=== PATIENT | male | born 1970 | race Caucasian/White ===

== ENCOUNTER 2017-05-02 09:12 | Observation (INO) | payer OTHER ==
[2017-05-02] MEDS ORDERED: ASPIRIN 81 MG TABLET, CHEWABLE PO ONE (09:39)
--- NOTE | 2017-05-02 09:53 | ER Document Report ---
ED Medical Screen (RME) - General TRAVEL OUTSIDE OF THE [place] IN LAST 30 DAYS: No <TRACEY BROOKS - Last Filed: 05/02/17 12:24> <FREDERICK TOBIAS - Last Filed: 05/02/17 21:07> - General Chief Complaint: Chest Pain Stated Complaint: CHEST PAIN/SHORTNESS OF BREATH Time Seen by Provider: 05/02/17 09:32 Notes: Patient is a 46 year old male presenting to the emergency department for chest pain/tightness with nausea onset last night. Patient has also had a cough and headache over the last couple of days. Patient states he has been run down and tired lately. Patient states he feels like he had chest pain one other time recently but it went away unlike last night's episode where it lasted longer. Patient also complains of some neck pain this morning. Patient denies any vomiting or diarrhea. Patient states he feels like he has to "work harder to breath." Patient also complains of some dizziness with walking. Patient also states he had an episode recently where his body was shaking for about 30 minutes which was abnormal for him. Patient denies any history of stroke, [place], diabetes mellitus, and hypertension. Patient had a physical about 1.5 years ago and he was healthy with normal blood work. I have greeted and performed a rapid initial assessment of this patient. A comprehensive ED assessment and evaluation of the patient, analysis of test results and completion of the medical decision making process will be conducted by additional ED providers. (TRACEY BROOKS) - Related Data Allergies/Adverse Reactions: No Known Allergies Allergy (Verified 05/02/17 09:24) Past Medical History - Social History Cigarette use (# per day): No Chew tobacco use (# tins/day): No Frequency of alcohol use: None Drug Abuse: None Renal/ Medical History: Denies: Hx Peritoneal Dialysis Past Surgical History: Reports: Hx Appendectomy <TRACEY BROOKS - Last Filed: 05/02/17 12:24> Physical Exam <TRACEY BROOKS - Last Filed: 05/02/17 12:24> <FREDERICK TOBIAS - Last Filed: 05/02/17 21:07> - Vital signs Vitals: Temp Pulse Resp BP Pulse Ox 97.9 F 81 20 136/83 H 96 05/02/17 09:25 05/02/17 09:25 05/02/17 09:25 05/02/17 09:25 05/02/17 09:25 - Notes Notes: General: Alert, interacts well, no acute distress. Lungs: Clear to auscultation bilaterally, dry cough, no rhonchi no wheezing. Heart: Regular rhythm and rate. No murmurs, gallops or rubs. Abdomen: Overweight. (TRACEY BROOKS) Course - Laboratory Result Diagrams: 05/02/17 09:45 05/02/17 09:45 <TRACEY BROOKS - Last Filed: 05/02/17 12:24> - Laboratory Result Diagrams: 05/02/17 09:45 05/02/17 09:45 <FREDERICK TOBIAS - Last Filed: 05/02/17 21:07> - Vital Signs Vital signs: Temp Pulse Resp BP Pulse Ox 97.8 F 73 20 151/88 H 97 05/02/17 18:25 05/02/17 19:00 05/02/17 18:25 05/02/17 18:25 05/02/17 18:25 - Laboratory Laboratory results interpreted by me: 05/02/17 05/02/17 05/02/17 09:45 09:45 09:45 RBC 5.80 H D-Dimer 2.22 H Total Protein 8.3 H Doctor's Discharge <TRACEY BROOKS - Last Filed: 05/02/17 12:24> <FREDERICK TOBIAS - Last Filed: 05/02/17 21:07> - Discharge Clinical Impression: Pulmonary embolism Scribe Documentation - Scribe Written by Scribpilo:: Emory Carrasco 05/02/17 10:00 acting as scribe for :: Narcisa <TRACEY BROOKS - Last Filed: 05/02/17 12:24>
[2017-05-02 10:01] LABS: ABSOLUTE EOSINOPHILS # (AUTO) 0.3 10^3/uL (0.0-0.6); ABSOLUTE LYMPHOCYTES (AUTO) 1.6 10^3/uL (0.5-4.7); ABSOLUTE MONOCYTES (AUTO) 1.1 10^3/uL (0.1-1.4); ABSOLUTE NEUT (AUTO) 6.7 10^3/uL (1.7-8.2); BASOPHILS % (AUTO) 0.5 % (0-2); EOSINOPHILS % (AUTO) 3.4 % (0-6); HEMATOCRIT 48.7 % (37.9-51.0); HEMOGLOBIN 16.4 g/dL (13.5-17.0); HGB HCT DIFFERENCE 0.5; LYMPHOCYTES % (AUTO) 16.7 % (13-45); MEAN CORPUSCULAR HEMOGLOBIN 28.3 pg (27.0-33.4); MEAN CORPUSCULAR HGB CONC 33.7 g/dL (32.0-36.0); MEAN CORPUSCULAR VOLUME 84 fl (80-97); MONOCYTES % (AUTO) 11.6 % (3-13); RED CELL DISTRIBUTION WIDTH 13.5 % (11.5-14.0); SEGMENTED NEUTROPHILS % (AUTO) 67.8 % (42-78); WHITE BLOOD COUNT 9.9 10^3/uL (4.0-10.5)
--- NOTE | 2017-05-02 10:35 | RADIOLOGY REPORT (SQ) ---
EXAM DESCRIPTION: CHEST SINGLE VIEW COMPLETED DATE/TIME: 05/02/2017 10:28 am REASON FOR STUDY: chest pain, tightness, cough COMPARISON: None. EXAM PARAMETERS: NUMBER OF VIEWS: One view. TECHNIQUE: Single frontal radiographic view of the chest acquired. RADIATION DOSE: NA LIMITATIONS: None. FINDINGS: LUNGS AND PLEURA: No opacities, masses or pneumothorax. No pleural effusion. MEDIASTINUM AND HILAR STRUCTURES: No masses. Contour normal. HEART AND VASCULAR STRUCTURES: Heart normal in size. Normal vasculature. BONES: No acute findings. HARDWARE: None in the chest. OTHER: No other significant finding. IMPRESSION: NO ACUTE RADIOGRAPHIC FINDING IN THE CHEST. TECHNICAL DOCUMENTATION: JOB ID: [id number]
[2017-05-02 10:43] LABS: ALANINE AMINOTRANSFERASE 34 U/L (21-72); ALBUMIN 4.6 g/dL (3.5-5.0); ALKALINE PHOSPHATASE 79 U/L (38-126); ANION GAP 14 (5-19); ASPARTATE AMINO TRANSFERASE 30 U/L (17-59); BILIRUBIN,DIRECT 0.4 mg/dL (0.0-0.4); BLOOD UREA NITROGEN 14 mg/dL (7-20); CALCIUM 9.6 mg/dL (8.4-10.2); CARBON DIOXIDE 24 mmol/L (22-30); CHLORIDE 103 mmol/L (98-107); CREATINE KINASE 109 U/L (55-170); CREATININE RESULT 0.91 mg/dL (0.52-1.25); GLUCOSE 103 mg/dL (75-110); POTASSIUM 4.4 mmol/L (3.6-5.0); SODIUM 140.7 mmol/L (137-145); TOTAL PROTEIN 8.3 g/dL (6.3-8.2)
--- NOTE | 2017-05-02 10:48 | ER Document Report ---
ED Cardiac - General Chief Complaint: Chest Pain Stated Complaint: CHEST PAIN/SHORTNESS OF BREATH Time Seen by Provider: 05/02/17 09:32 Notes: Patient is here to be evaluated for a "tightness" in the front of his chest that began last night after he ate dinner. He says it feels "full". Also started having generalized headache and some nausea last night. He has had a cough for the past couple days and denies shortness of breath but he says his breathing feels "off" and "different" his nausea and headache continued today. He is also feeling some dizziness. The chest tightness has been constant although it has eased somewhat and is less today than it was last night. He has had no vomiting. Has had some loose stools last night and this morning. Has not had a fever, but did feel he has had some chills and sweats. Patient has no significant past medical history. Does not get headaches frequently. Has no history of any heart disease. Is not on any prescription medications. Only surgery is appendectomy. Does not smoke. TRAVEL OUTSIDE OF THE [place] IN LAST 30 DAYS: No - Related Data Allergies/Adverse Reactions: No Known Allergies Allergy (Verified 05/02/17 09:24) Home Medications: Current Home Medications No Home Medications 05/02/17 [History] Past Medical History - Social History Smoking Status: Never Smoker Cigarette use (# per day): No Chew tobacco use (# tins/day): No Frequency of alcohol use: None Drug Abuse: None Family History: Reviewed & Not Pertinent - Past Medical History Cardiac Medical History: Reports: None Pulmonary Medical History: Reports: None Endocrine Medical History: Denies: Hx Diabetes Mellitus Type 1, Hx Diabetes Mellitus Type 2 Psychiatric Medical History: Denies: Hx Anxiety Past Surgical History: Reports: Hx Appendectomy Review of Systems - Review of Systems Notes: REVIEW OF SYSTEMS: CONSTITUTIONAL : Denies fever. EENT: Denies eye, ear, nose or mouth or throat pain or other symptoms. CARDIOVASCULAR: See HPI. RESPIRATORY: See HPI. GASTROINTESTINAL: Denies abdominal pain or nausea, vomiting, or diarrhea. GENITOURINARY: Denies difficulty or painful urinating, urinary frequency, blood in urine. MUSCULOSKELETAL: Denies back or neck pain. Denies joint pain or swelling. SKIN: Denies rash or skin lesions. NEUROLOGICAL: Denies LOC or altered mental status. Denies headache. Denies sensory loss or motor deficits. Psychiatric: Denies stress/anxiety ALL OTHER SYSTEMS REVIEWED AND NEGATIVE. Physical Exam - Vital signs Vitals: Temp Pulse Resp BP Pulse Ox 97.9 F 81 20 136/83 H 96 05/02/17 09:25 05/02/17 09:25 05/02/17 09:25 05/02/17 09:25 05/02/17 09:25 Interpretation: Normal - Notes Notes: PHYSICAL EXAMINATION: GENERAL: Well-appearing, in no acute distress. Weight is 123 kg. No tachycardia and no hypoxia noted. HEAD: Atraumatic, normocephalic. NECK: Normal range of motion, supple. LUNGS: Breath sounds clear and equal bilaterally. HEART: Regular rate and rhythm without murmurs. ABDOMEN: Soft, nontender. No guarding or rebound. No masses. No bruits heard. BACK: No tenderness throughout entire back. EXTREMITIES: Normal range of motion without pain. Negative Homans bilaterally. NEUROLOGICAL: Normal speech, normal gait. Normal sensory, motor, and reflex exams. Awake, alert, and oriented x3. Cranial nerves normal. PSYCH: Normal mood, normal affect. SKIN: Warm, dry, no rashes. Course - Re-evaluation Re-evalutation: 05/02/17 12:01 All labs are normal except for d-dimer of 2.22. Plan to order a CTA of the chest. CTA shows a right pulmonary embolism. Hospitalist was called to see patient and they have decided to admit the patient to start him on anticoagulation treatment. - Vital Signs Vital signs: Temp Pulse Resp BP Pulse Ox 97.9 F 81 20 107/68 98 05/02/17 09:25 05/02/17 09:25 05/02/17 16:00 05/02/17 16:01 05/02/17 16:01 - Laboratory Result Diagrams: 05/02/17 09:45 05/02/17 09:45 Laboratory results interpreted by me: 05/02/17 05/02/17 05/02/17 09:45 09:45 09:45 RBC 5.80 H D-Dimer 2.22 H Total Protein 8.3 H - Diagnostic Test Radiology reviewed: Image reviewed, Reports reviewed - CTA of the chest shows a single right pulmonary artery thromboembolus. Radiology results interpreted by me: 05/02/17 10:55 Chest x-ray is normal. - EKG Interpretation by [facility] EKG shows normal: Sinus rhythm Rate: Normal Rhythm: NSR Discharge - Discharge Clinical Impression: Pulmonary embolism Qualifiers: Pulmonary embolism type: other Chronicity: acute Acute cor pulmonale presence: without acute cor pulmonale Qualified Code(s): I26.99 - Other pulmonary embolism without acute cor pulmonale Admitting Provider: Hospitalist Unit Admitted: Telemetry
[2017-05-02 10:53] LABS: CREATINE KINASE MB 0.54 ng/mL (<4.55)
[2017-05-02 10:58] LABS: TROPONIN I < 0.012 ng/mL
--- NOTE | 2017-05-02 12:40 | RADIOLOGY REPORT (SQ) ---
EXAM DESCRIPTION: CTA CHEST COMPLETED DATE/TIME: 05/02/2017 12:22 pm REASON FOR STUDY: Chest pain, difficulty breathing, positive d-dimer COMPARISON: Chest x-ray dated 05/02/2017 TECHNIQUE: CT scan of the chest performed using helical scanning technique with dynamic intravenous contrast injection. Images reviewed with lung, soft tissue and bone windows. Reconstructed coronal and sagittal MPR images reviewed. Additional 3 dimensional post-processing performed to develop Maximal Intensity Projection images (AR P). All images stored on PACS. All CT scanners at this facility use dose modulation, iterative reconstruction, and/or weight based d osing when appropriate to reduce radiation dose to as low as reasonably achievable (ALARA). [facility]: Dose Right [facility]: CareDose [facility]: Dose Right [facility]: Teradose 4D [facility]: Autotask CONTRAST TYPE AND DOSE: contrast/concentration: Isovue 370.00 mg/ml; Total Contrast Delivered: 84.0 ml; Total Saline Delivered: 99.2 ml RENAL FUNCTION: None required. The patient is less than 50 years old. RADIATION DOSE: Up-to-date CT equipment and radiation dose reduction techniques were employed. CTDIv ol: 16.5 - 37.6 mGy. DLP: 1406 mGy-cm. . LIMITATIONS: None. FINDINGS: LUNGS AND PLEURA: No masses, infiltrates, pneumothorax. No pleural effusions, calcificati ons. AORTA AND GREAT VESSELS: No aneurysm or dissection. HEART: No pericardial effusion. PULMONARY ARTERIES: Intraluminal thrombus is identified in 1 of the descending pulmonary arteries on the right. No other evidence for pulmonary embolic disease is seen. HILAR AND MEDIASTINAL STRUCTURES: No identified masses or abnormal nodes. HARDWARE: None in the chest. UPPER ABDOMEN: No significant findings. Limited exam. THYROID AND OTHER SOFT TISSUES: No masses. No adenopathy. BONES: No acute or significant finding. 3D MIPS: Confirm above findings. OTHER: No other significant finding. IMPRESSION: Findings consistent with pulmonary embolic disease involving 1 of the descending pulmona ry arteries on the right. No other evidence for pulmonary embolic disease is seen. No acute consoli dations or pleural effusions are identified. Other findings as noted above TECHNICAL DOCUMENTATION: JOB ID: [id number] Quality ID # [id number]: Final reports with documentation of one or more dose reduction techniques (e.g., Au tomated exposure control, adjustment of the mA and/or kV according to patient size, use of iterative reconstruction technique) 2010 [employer]- All Rights Reserved
[2017-05-02] MEDS ORDERED: IPRATROPIUM/ALBUTEROL 0.5-2.5 MG/3 ML AMPUL NEB PRN (14:07)
[2017-05-02] MEDS ORDERED: ENOXAPARIN SODIUM INJ 120 MG/0.8 ML DISP.SYRIN SUBCUT ONE (14:23)
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
[2017-05-02] MEDS ORDERED: ACETAMINOPHEN 325 MG TABLET ONE (14:54)
[2017-05-02] MEDS: ACETAMINOPHEN 325 MG TABLET PO PRN ×2 (14:55→20:30)
--- NOTE | 2017-05-02 16:58 | XCELERA REPORT ---
[address] [address] Lower Extremity Venous Evaluation Name: JIMMY MORALES Age: 46 yrs Gender: Male : 1970 Patient Status: Inpatient Patient Location: \S\[facility]\S\A Study Date: 05/02/2017 03:54 PM Procedure: Color flow and duplex imaging bilaterally of the veins of the lower extremities as well as the Common Femoral veins. Reason For Study: pe Ordering Physician: NIDHI AVELAR Performed By: Donnie Garcia Right Sided Venous Evaluation Normal vessel filling wall to wall, compression and augmentation as well as Colour flow down to the infrageniculate veins. Left Sided Venous Evaluation Normal vessel filling wall to wall, compression and augmentation as well as Colour flow down to the infrageniculate veins. Interpretation Summary No duplex evidence of DVT or obstruction in the bilateral lower extremities. : NIDHI AVELAR > Warren Zavala
[2017-05-03] MEDS ORDERED: APIXABAN 5 MG TABLET PO SCH (06:00)
[2017-05-03 07:22] LABS: HEMATOCRIT 44.2 % (37.9-51.0); HEMOGLOBIN 15.2 g/dL (13.5-17.0); HGB HCT DIFFERENCE 1.4; MEAN CORPUSCULAR HEMOGLOBIN 29.1 pg (27.0-33.4); MEAN CORPUSCULAR HGB CONC 34.3 g/dL (32.0-36.0); MEAN CORPUSCULAR VOLUME 85 fl (80-97); RED BLOOD COUNT 5.21 10^6/uL (4.35-5.55); RED CELL DISTRIBUTION WIDTH 13.4 % (11.5-14.0); WHITE BLOOD COUNT 7.7 10^3/uL (4.0-10.5)
[2017-05-03 07:44] LABS: ANION GAP 10 (5-19); BLOOD UREA NITROGEN 12 mg/dL (7-20); CALCIUM 9.1 mg/dL (8.4-10.2); CARBON DIOXIDE 25 mmol/L (22-30); CHLORIDE 104 mmol/L (98-107); GLUCOSE 85 mg/dL (75-110); MAGNESIUM 1.8 mg/dL (1.6-2.3); POTASSIUM 4.3 mmol/L (3.6-5.0); SODIUM 138.9 mmol/L (137-145)
[2017-05-03 13:36] VITALS: BP 151/88
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
--- NOTE | 2017-05-04 13:52 | EKG REPORT ---
SEVERITY:- OTHERWISE NORMAL ECG - SINUS RHYTHM BORDERLINE LEFT AXIS DEVIATION : Confirmed by: Ciara Friedman MD 04-May-2017 13:51:54
== END 2017-05-03 14:18 | disposition home or self-care (01) ==
LOC: ER 09:12 → EH 14:07 → 4S 18:08
PROVIDERS: ADMIT Hospitalist; ATTEND Hospitalist
DX: I26.99 Other pulmonary embolism without acute cor pulmonale (principal); E66.01 Morbid (severe) obesity due to excess calories; Z68.41 Body mass index [BMI] 40.0-44.9, adult; R11.0 Nausea; R51 Headache; R68.83 Chills (without fever); R25.1 Tremor, unspecified; Z82.49 Family history of ischemic heart disease and other diseases of the circulatory system; Z90.49 Acquired absence of other specified parts of digestive tract; Z87.828 Personal history of other (healed) physical injury and trauma
CPT/HCPCS: 93005; 99285; 96372; 36415 ×2; 82553; 82550; 83735; 84443; 85025; 85027; 85730; 82272; 80048; 80053; 84484; 85379; 93970 ×2; 71010; 71275; 93010; G0378 ×3; J1650; J3490 ×2

== ENCOUNTER 2017-05-03 22:55 | Emergency (ER) | payer SELFPAY ==
--- NOTE | 2017-05-04 13:52 | EKG REPORT ---
SEVERITY:- NORMAL ECG - SINUS RHYTHM : Confirmed by: Ciara Friedman MD 04-May-2017 13:51:45
== END 2017-05-04 00:05 | disposition left against medical advice (07) ==
LOC: ER 22:55
DX: Z53.21 Procedure and treatment not carried out due to patient leaving prior to being seen by health care provider (principal)
CPT/HCPCS: 93005; 93010

== ENCOUNTER 2017-05-04 06:29 | Emergency (ER) | payer SELFPAY ==
--- NOTE | 2017-05-04 08:14 | ER Document Report ---
HPI - HPI Pain Level: 4 - DERM Skin Color: Normal Past Medical History - Social History Family History: CAD, Hypertension Endocrine Medical History: Denies: Hx Diabetes Mellitus Type 1, Hx Diabetes Mellitus Type 2 Renal/ Medical History: Denies: Hx Peritoneal Dialysis Psychiatric Medical History: Denies: Hx Anxiety Past Surgical History: Reports: Hx Appendectomy Vertical Provider Document - INFECTION CONTROL TRAVEL OUTSIDE OF THE [place] IN LAST 30 DAYS: No - RESPIRATORY O2 Sat by Pulse Oximetry: 97 Course - Vital Signs Vital signs: Temp Pulse Resp BP Pulse Ox 98.6 F 85 18 142/77 H 97 05/04/17 06:51 05/04/17 06:51 05/04/17 06:51 05/04/17 06:51 05/04/17 06:51
--- NOTE | 2017-05-04 08:51 | ER Document Report ---
ED Respiratory Problem - General Chief Complaint: Rib Pain Stated Complaint: RIGHT SIDE PAIN Time Seen by Provider: 05/04/17 08:14 Mode of Arrival: Ambulatory Information source: Patient Notes: 46 yo male c/o right thoracic stabbing back pain since 7 pm worse with deep breath, movement, cough. Taking Eliquis 10mg bid since dx with right PE on . That pain was anterior only. No shortness of breath. TRAVEL OUTSIDE OF THE [place] IN LAST 30 DAYS: No - Related Data Allergies/Adverse Reactions: No Known Allergies Allergy (Verified 05/04/17 08:33) Past Medical History - General Information source: Patient - Social History Smoking Status: Never Smoker Chew tobacco use (# tins/day): No Frequency of alcohol use: None Drug Abuse: None Lives with: Spouse/Significant other Family History: CAD, Hypertension - Medical History Medical History: Negative Renal/ Medical History: Denies: Hx Peritoneal Dialysis Past Surgical History: Reports: Hx Appendectomy - Immunizations Hx Diphtheria, Pertussis, Tetanus Vaccination: Yes Review of Systems - Review of Systems Constitutional: No symptoms reported EENT: No symptoms reported Cardiovascular: No symptoms reported Respiratory: See HPI Gastrointestinal: No symptoms reported Genitourinary: No symptoms reported Male Genitourinary: No symptoms reported Musculoskeletal: No symptoms reported Skin: No symptoms reported Hematologic/Lymphatic: No symptoms reported Neurological/Psychological: No symptoms reported Physical Exam - Vital signs Vitals: Temp Pulse Resp BP Pulse Ox 98.6 F 85 18 142/77 H 97 05/04/17 06:51 05/04/17 06:51 05/04/17 06:51 05/04/17 06:51 05/04/17 06:51 Interpretation: Normal - General General appearance: Appears well, Alert In distress: None - HEENT Head: Normocephalic, Atraumatic Eyes: Normal Pupils: PERRL Neck: Supple. No: Lymphadenopathy - Respiratory Respiratory status: No respiratory distress Chest status: Nontender, Pain with cough, Pain with deep breathing Breath sounds: Normal Chest palpation: Normal - Cardiovascular Rhythm: Regular Heart sounds: Normal auscultation Murmur: No - Abdominal Inspection: Normal Distension: No distension Bowel sounds: Normal Tenderness: Nontender Organomegaly: No organomegaly - Back Back: Normal, Nontender. No: Tender - Extremities General upper extremity: Normal inspection, Nontender, Normal color, Normal ROM , Normal temperature General lower extremity: Normal inspection, Nontender, Normal color, Normal ROM , Normal temperature, Normal weight bearing. No: Delano's sign - Neurological Neuro grossly intact: Yes Cognition: Normal Orientation: AAOx4 Katty Coma Scale Eye Opening: Spontaneous [place] Coma Scale Verbal: Oriented Katty Coma Scale Motor: Obeys Commands [place] Coma Scale Total: 15 Speech: Normal Motor strength normal: LUE, RUE, LLE, RLE Sensory: Normal - Psychological Associated symptoms: Normal affect, Normal mood - Skin Skin Temperature: Warm Skin Moisture: Dry Skin Color: Normal Skin irregularity: negative: Rash Course - Re-evaluation Re-evalutation: 05/04/17 09:[address] li, pt can hurt for weeks with this, chest xray OK per radiologist 05/04/17 09:45 - Vital Signs Vital signs: Temp Pulse Resp BP Pulse Ox 99.0 F 73 16 132/80 H 98 05/04/17 09:58 05/04/17 09:58 05/04/17 09:58 05/04/17 09:58 05/04/17 09:58 Discharge - Discharge Clinical Impression: right thoracic back pain, pleuritic posterior chest pain, Hx right PE Condition: Good Disposition: HOME, SELF-CARE Instructions: Warm Packs ([facility]), Oral Narcotic Medication ([facility]), Pleurisy ([facility]) Additional Instructions: warm compress may help continue to cough and deep breathe return to er if any shortness of breath continue the eliquis pain medication may cause constipation, so take stool softner Please complete the patient satisfaction survey if you get one, and return it.. If you do not receive a survey, then you can go to the [facility] website, [email or web address] and place your comments about your very good care. Thank you very much. It was a pleasure being your medical provider today. Prescriptions: Hydrocodone Bit/Acetaminophen [Hydrocodon-Acetaminophen 5-325] 1 - 2 each PO Q4HP PRN #30 tablet PRN Reason: Referrals: SHANNEN ESTEVEZ PA-C [Primary Care Provider] - Follow up in 3-5 days
[2017-05-04] MEDS ORDERED: HYDROCODONE/ACETAMINOPHEN 5-325 MG TABLET PO ONE (09:01)
--- NOTE | 2017-05-04 09:42 | RADIOLOGY REPORT (SQ) ---
EXAM DESCRIPTION: CHEST PA/LAT COMPLETED DATE/TIME: 05/04/2017 9:32 am REASON FOR STUDY: right posterior thoracic chest pain COMPARISON: 05/02/2017 EXAM PARAMETERS: NUMBER OF VIEWS: two views TECHNIQUE: Digital Frontal and Lateral radiographic views of the chest acquired. RADIATION DOSE: NA LIMITATIONS: none FINDINGS: LUNGS AND PLEURA: No new opacities, masses or pneumothorax. No pleural effusion. MEDIASTINUM AND HILAR STRUCTURES: No masses or contour abnormalities. HEART AND VASCULAR STRUCTURES: Heart stable in size. No evidence for failure. BONES: No acute findings. HARDWARE: None in the chest. OTHER: No other significant finding. IMPRESSION: NO ACUTE CARDIOPULMONARY PROCESS OR SIGNIFICANT CHANGE FROM PRIOR STUDY. TECHNICAL DOCUMENTATION: JOB ID: [id number] [employer]- All Rights Reserved
[2017-05-04 10:02] VITALS: BP 132/80
== END 2017-05-04 09:55 | disposition home or self-care (01) ==
LOC: ER 06:29
DX: M54.6 Pain in thoracic spine (principal); R07.81 Pleurodynia; R07.1 Chest pain on breathing; Z86.711 Personal history of pulmonary embolism; Z79.02 Long term (current) use of antithrombotics/antiplatelets; Z82.49 Family history of ischemic heart disease and other diseases of the circulatory system
CPT/HCPCS: 71020; 99283

== ENCOUNTER 2017-05-05 09:14 | Emergency (ER) | payer SELFPAY ==
--- NOTE | 2017-05-05 10:10 | ER Document Report ---
HPI - HPI Patient complains to provider of: fever Onset: Yesterday Onset/Duration: Intermittent Pain Level: 3 Context: 46-year-old male with a diagnosis of right pulmonary embolism returns today because he developed a fever over 101 yesterday. He was seen in the emergency department yesterday due to thoracic back pain. I treated him with hydrocodone in the chest x-ray was negative for pneumonia. There is no increased shortness of breath and the pain is decreased since he was taking hydrocodone. Her throat runny nose. No nausea vomiting or diarrhea. No abdominal pain. No dysuria. Associated Symptoms: None Exacerbated by: Denies Relieved by: Other - tylenol Similar symptoms previously: No Recently seen / treated by doctor: No - ROS ROS below otherwise negative: Yes Systems Reviewed and Negative: Yes All other systems reviewed and negative - CARDIOVASCULAR Cardiovascular: DENIES: Chest pain - DERM Skin Color: Normal Past Medical History - General Information source: Patient - Social History Smoking Status: Never Smoker Frequency of alcohol use: None Drug Abuse: None Lives with: Family Family History: CAD, Hypertension - Medical History Medical History: Negative Pulmonary Medical History: Reports: Other - PE recent dx, taking eliquis Renal/ Medical History: Denies: Hx Peritoneal Dialysis Past Surgical History: Reports: Hx Appendectomy - Immunizations Hx Diphtheria, Pertussis, Tetanus Vaccination: Yes Vertical Provider Document - CONSTITUTIONAL Agree With Documented VS: Yes Exam Limitations: No Limitations - INFECTION CONTROL TRAVEL OUTSIDE OF THE [place] IN LAST 30 DAYS: No - HEENT HEENT: Normal ENT Exam. negative: Conjuctival Injection - NECK Neck: Supple - RESPIRATORY Respiratory: Rales - fine crackles right bse. negative: Rhonchi, Wheezing O2 Sat by Pulse Oximetry: 97 - CARDIOVASCULAR Cardiovascular: Regular Rate, Regular Rhythm - GI/ABDOMEN Gastrointestinal: Abdomen Soft, Abdomen Non-Tender - MUSCULOSKELETAL/EXTREMETIES Musculoskeletal/Extremeties: MAEW, FROM - NEURO Level of Consciousness: Awake, Alert, Appropriate Motor/Sensory: No Motor Deficit, No Sensory Deficit - DERM Integumentary: Warm, Dry, No Rash Course - Re-evaluation Re-evalutation: 05/05/17 11:30 Chest x-ray shows atelectasis and low lung volumes. I instructed the patient on how to use the incentive spirometer and will try an albuterol nebulizer treatment. CBC is normal. 05/05/17 12:38 able to breathe deeper after incentive spirometer and albuterol nebulizer. Areated lower right lung than prior to tx and incentive spirometer 05/05/17 12:55 - Vital Signs Vital signs: Temp Pulse Resp BP Pulse Ox 99.0 F 102 H 20 165/82 H 97 05/05/17 09:19 05/05/17 09:19 05/05/17 09:19 05/05/17 09:19 05/05/17 09:19 - Laboratory Result Diagrams: 05/05/17 11:06 05/05/17 11:06 Discharge - Discharge Clinical Impression: Hx pulmonary embolism, mild atelectasis Fever Qualifiers: Fever type: unspecified Qualified Code(s): R50.9 - Fever, unspecified Condition: Good Disposition: HOME, SELF-CARE Instructions: Fever ([facility]), Acetaminophen, Atelectasis ([facility]), Inhaled Bronchodilators ([facility]) Additional Instructions: use the incentive spirometry every hour cougn and deep breath use the albuterol meter dose inhaler every 3 hours, 2 puffs to er if worsening symptoms Please complete the patient satisfaction survey if you get one, and return it.. If you do not receive a survey, then you can go to the [facility] website, [email or web address] and place your comments about your very good care. Thank you very much. It was a pleasure being your medical provider today. Prescriptions: Albuterol Sulfate [Proair HFA Inhalation Aerosol 8.5 gm MDI] 2 puff IH Q3HP PRN #1 [email or web address] PRN Reason: Referrals: SHANNEN ESTEVEZ PA-C [Primary Care Provider] - Follow up as needed
--- NOTE | 2017-05-05 10:33 | RADIOLOGY REPORT (SQ) ---
EXAM DESCRIPTION: CHEST PA/LAT COMPLETED DATE/TIME: 05/05/2017 10:23 am REASON FOR STUDY: recent PE , fever COMPARISON: 05/04/2017. EXAM PARAMETERS: NUMBER OF VIEWS: two views TECHNIQUE: Digital Frontal and Lateral radiographic views of the chest acquired. RADIATION DOSE: NA LIMITATIONS: none FINDINGS: LUNGS AND PLEURA: Low lung volumes with mild atelectasis. No infiltrates, masses or pneum othorax. No pleural effusion. MEDIASTINUM AND HILAR STRUCTURES: No masses or contour abnormalities. HEART AND VASCULAR STRUCTURES: Heart normal size. No evidence for failure. BONES: No acute findings. HARDWARE: None in the chest. OTHER: No other significant finding. IMPRESSION: LOW LUNG VOLUMES WITH MILD ATELECTASIS. NO INFILTRATE OR OTHER ACUTE FINDINGS. TECHNICAL DOCUMENTATION: JOB ID: [id number]- All Rights Reserved
[2017-05-05 11:19] LABS: ABSOLUTE BASOPHILS # (AUTO) 0.1 10^3/uL (0.0-0.2); ABSOLUTE EOSINOPHILS # (AUTO) 0.1 10^3/uL (0.0-0.6); ABSOLUTE LYMPHOCYTES (AUTO) 1.5 10^3/uL (0.5-4.7); ABSOLUTE MONOCYTES (AUTO) 1.6 10^3/uL (0.1-1.4); ABSOLUTE NEUT (AUTO) 6.9 10^3/uL (1.7-8.2); BASOPHILS % (AUTO) 0.5 % (0-2); EOSINOPHILS % (AUTO) 1.2 % (0-6); HEMATOCRIT 43.4 % (37.9-51.0); HEMOGLOBIN 14.7 g/dL (13.5-17.0); HGB HCT DIFFERENCE 0.7; LYMPHOCYTES % (AUTO) 14.6 % (13-45); MEAN CORPUSCULAR HEMOGLOBIN 28.7 pg (27.0-33.4); MEAN CORPUSCULAR HGB CONC 33.8 g/dL (32.0-36.0); MEAN CORPUSCULAR VOLUME 85 fl (80-97); RED BLOOD COUNT 5.11 10^6/uL (4.35-5.55); RED CELL DISTRIBUTION WIDTH 13.1 % (11.5-14.0); SEGMENTED NEUTROPHILS % (AUTO) 67.7 % (42-78); WHITE BLOOD COUNT 10.2 10^3/uL (4.0-10.5)
[2017-05-05] MEDS ORDERED: ALBUTEROL SULFATE 0.083% NEB 2.5 MG/3 ML AMPUL NEB ONE (11:30)
[2017-05-05 11:31] LABS: ALANINE AMINOTRANSFERASE 36 U/L (21-72); ALBUMIN 4.3 g/dL (3.5-5.0); ALKALINE PHOSPHATASE 70 U/L (38-126); ANION GAP 10 (5-19); ASPARTATE AMINO TRANSFERASE 22 U/L (17-59); BILIRUBIN,DIRECT 0.4 mg/dL (0.0-0.4); BILIRUBIN,TOTAL 1.2 mg/dL (0.2-1.3); BLOOD UREA NITROGEN 11 mg/dL (7-20); CALCIUM 9.1 mg/dL (8.4-10.2); CARBON DIOXIDE 26 mmol/L (22-30); CHLORIDE 101 mmol/L (98-107); CREATININE RESULT 0.88 mg/dL (0.52-1.25); GLUCOSE 98 mg/dL (75-110); POTASSIUM 4.5 mmol/L (3.6-5.0); SODIUM 137.4 mmol/L (137-145); TOTAL PROTEIN 7.5 g/dL (6.3-8.2)
[2017-05-05] MEDS ORDERED: ALBUTEROL SULFATE HFA (90 MCG/PUFF) 200 PUFF/8.5 GM MDI IH ONE (12:19)
[2017-05-05 12:55] VITALS: BP 128/95
== END 2017-05-05 12:53 | disposition home or self-care (01) ==
LOC: ER 09:14
DX: R50.9 Fever, unspecified (principal); I26.99 Other pulmonary embolism without acute cor pulmonale; J98.11 Atelectasis; Z86.711 Personal history of pulmonary embolism; Z79.01 Long term (current) use of anticoagulants
CPT/HCPCS: 94640 ×2; 99283; 36415; 85025; 80053; 71020; J3490

== ENCOUNTER 2017-05-14 08:00 | Emergency (ER) | payer SELFPAY ==
--- NOTE | 2017-05-14 09:58 | RADIOLOGY REPORT (SQ) ---
EXAM DESCRIPTION: CTA CHEST COMPLETED DATE/TIME: 05/14/2017 9:26 am REASON FOR STUDY: hx PE COMPARISON: None. TECHNIQUE: CT scan of the chest performed using helical scanning technique with dynamic intravenous contrast injection. Images reviewed with lung, soft tissue and bone windows. Reconstructed coronal and sagittal MPR images reviewed. Additional 3 dimensional post-processing performed to develop Maximal Intensity Projection images (N[place] P). All images stored on PACS. All CT scanners at this facility use dose modulation, iterative reconstruction, and/or weight based d osing when appropriate to reduce radiation dose to as low as reasonably achievable (ALARA). [facility]: Dose Right [facility]: CareDose [facility]: Dose Right [facility]: Teradose 4D [facility]: Off Track Planet CONTRAST TYPE AND DOSE: contrast/concentration: Isovue 370.00 mg/ml; Total Contrast Delivered: 77.0 ml; Total Saline Delivered: 88.0 ml RENAL FUNCTION: BUN 11 creatinine 0.88 RADIATION DOSE: Up-to-date CT equipment and radiation dose reduction techniques were employed. CTDIv ol: 1.9 - 15.5 mGy. DLP: 583 mGy-cm. . LIMITATIONS: None. FINDINGS: LUNGS AND PLEURA: Small/moderate right-sided pleural effusion with associated compressive atelectasis. No focal consolidations identified no pneumothorax. No worrisome pulmonary nodules. T here is some mild scarring seen in the left lingula. AORTA AND GREAT VESSELS: No aneurysm or dissection. HEART: No pericardial effusion. PULMONARY ARTERIES: Acute thrombus is noted in a few subsegmental branches of the right lower lobe (s eries 3, image 60). No other pulmonary emboli identified. HILAR AND MEDIASTINAL STRUCTURES: No identified masses or abnormal nodes. HARDWARE: None in the chest. UPPER ABDOMEN: No significant findings. Colonic diverticulosis noted. Limited exam. THYROID AND OTHER SOFT TISSUES: No masses. No adenopathy. BONES: No acute or significant finding. 3D MIPS: Confirm above findings. OTHER: No other significant finding. IMPRESSION: 1. Acute pulmonary embolus identified within a few subsegmental branches of the right lo wer lobe. No large or central pulmonary emboli identified. No other acute pulmonary emboli identifi ed. 2. Small to moderate right-sided pleural effusion. Associated atelectasis. No focal consolidation. TECHNICAL DOCUMENTATION: JOB ID: [id number] Quality ID # [id number]: Final reports with documentation of one or more dose reduction techniques (e.g., Au tomated exposure control, adjustment of the mA and/or kV according to patient size, use of iterative reconstruction technique) 2010 [employer]- All Rights Reserved
--- NOTE | 2017-05-14 10:16 | RADIOLOGY REPORT (SQ) ---
EXAM DESCRIPTION: VENOUS UNILATERAL LOWER COMPLETED DATE/TIME: 05/14/2017 10:07 am REASON FOR STUDY: hx PE COMPARISON: None. TECHNIQUE: Dynamic and static lopez scale and color images acquired of the left leg venous system. Se lected spectral images acquired with additional compression and augmentation maneuvers. The contralat eral common femoral vein and saphenofemoral junction were also imaged. Images stored on PACS. LIMITATIONS: None. FINDINGS: COMMON FEMORAL: Normal phasicity, compression and augmentation. No visualized echogenic ma terial on lopez scale. No defects on color images. FEMORAL: Normal compression and augmentation. No visualized echogenic material on lopez scale. No defe cts on color images. POPLITEAL: Normal compression, augmentation. No visualized echogenic material on lopez scale. No defec ts on color images. CALF VESSELS: Normal compression, augmentation. No visualized echogenic material on lopez scale. No de fects on color images. GSV and SSV: Normal compression, augmentation. No visualized echogenic material on lopez scale. No def ects on color images. ANY DEEP VENOUS INSUFFICIENCY: Not evaluated. ANY EVIDENCE OF POPLITEAL CYST: No. OTHER: No other significant finding. CONTRALATERAL COMMON FEMORAL VEIN AND SAPHENOFEMORAL JUNCTION: Normal phasicity, compression and augmentation. No visualized echogenic material on lopez scale. No de fects on color images. IMPRESSION: NO EVIDENCE OF DVT OR SVT IN THE LEFT LEG. TECHNICAL DOCUMENTATION: JOB ID: [id number] [employer]- All Rights Reserved
--- NOTE | 2017-05-14 10:16 | ER Document Report ---
ED General - General Chief Complaint: Shortness Of Breath Stated Complaint: NECK PAIN, SHORTNESS OF BREATH Time Seen by Provider: 05/14/17 08:39 Mode of Arrival: Ambulatory Information source: Patient Notes: 46-year-old male who was diagnosed with a right-sided pulmonary emboli presents with complaints of shortness of breath as well as right groin pain. Patient notes he has been seen multiple times since his initial diagnosis. Patient notes he is quite anxious admits to shortness of breath. Patient denies any fevers or chills nausea vomiting or diarrhea. Patient has been taking Eliquis as prescribed TRAVEL OUTSIDE OF THE [place] IN LAST 30 DAYS: No - HPI Onset: Other Onset/Duration: Persistent Quality of pain: Achy Severity: Mild Pain Level: 1 Associated symptoms: Body/muscle aches, Nonproductive cough Exacerbated by: Denies Relieved by: Denies Similar symptoms previously: Yes Recently seen / treated by doctor: Yes - Related Data Allergies/Adverse Reactions: No Known Allergies Allergy (Verified 05/14/17 08:03) Past Medical History - Social History Smoking Status: Never Smoker Cigarette use (# per day): No Chew tobacco use (# tins/day): No Smoking Education Provided: No Frequency of alcohol use: None Drug Abuse: None Family History: CAD, Hypertension Endocrine Medical History: Denies: Hx Diabetes Mellitus Type 1, Hx Diabetes Mellitus Type 2 Renal/ Medical History: Denies: Hx Peritoneal Dialysis Psychiatric Medical History: Denies: Hx Anxiety Past Surgical History: Reports: Hx Appendectomy - Immunizations Hx Diphtheria, Pertussis, Tetanus Vaccination: Yes Review of Systems - Review of Systems Notes: REVIEW OF SYSTEMS: CONSTITUTIONAL : Denies fever, chills, or sweats. Denies recent illness. EENT: Denies eye, ear, throat, or mouth pain or symptoms. Denies nasal or sinus congestion or discharge. Denies throat, tongue, or mouth swelling or difficulty swallowing. CARDIOVASCULAR: Admits to right-sided chest pain RESPIRATORY: Admits nonproductive cough pain with cough on the right GASTROINTESTINAL: Denies abdominal pain or distention. Denies nausea, vomiting , or diarrhea. Denies blood in vomitus, stools, or per rectum. Denies black, tarry stools. Denies constipation. GENITOURINARY: Denies difficulty urinating, painful urination, burning, frequency, blood in urine, or discharge. MUSCULOSKELETAL: Admits to right groin pain SKIN: Denies rash, lesions or sores. HEMATOLOGIC : Denies easy bruising or bleeding. LYMPHATIC: Denies swollen, enlarged glands. NEUROLOGICAL: Denies confusion or altered mental status. Denies passing out or loss of consciousness. Denies dizziness or lightheadedness. Denies headache. Denies weakness or paralysis or loss of use of either side. Denies problems with gait or speech. Denies sensory loss, numbness, or tingling. Denies seizures. PSYCHIATRIC: Admits to anxiety ALL OTHER SYSTEMS REVIEWED AND NEGATIVE. Dictation was performed using [employer] voice recognition software PHYSICAL EXAMINATION: GENERAL: Well-appearing, well-nourished and in no acute distress. HEAD: Atraumatic, normocephalic. EYES: Pupils equal round and reactive to light, extraocular movements intact, sclera anicteric, conjunctiva are normal. ENT: Nares patent, oropharynx clear without exudates. Moist mucous membranes. NECK: Normal range of motion, supple without lymphadenopathy LUNGS: Breath sounds clear to auscultation bilaterally and equal. No wheezes rales or rhonchi. HEART: Regular rate and rhythm without murmurs ABDOMEN: Soft, nontender, nondistended abdomen. No guarding, no rebound. No masses appreciated. Musculoskeletal: Normal range of motion, no pitting or edema. No cyanosis. NEUROLOGICAL: Cranial nerves grossly intact. Normal speech, normal gait. Normal sensory, motor exams PSYCH: Patient is quite anxious tearful SKIN: Warm, Dry, normal turgor, no rashes or lesions noted. Physical Exam - Vital signs Vitals: Temp Pulse Resp BP Pulse Ox 98.2 F 88 18 135/88 H 95 05/14/17 08:03 05/14/17 08:03 05/14/17 08:03 05/14/17 08:03 05/14/17 08:03 Course - Re-evaluation Re-evalutation: 05/14/17 16:32 Patient is quite anxious, he has been seen multiple times for similar episodes. Patient will be sent for CTA as well as a Doppler to rule out worsening clot while on thrombolytic therapy Results note no acute abnormality, I did speak with the radiologist who confirms that the pulmonary emboli is exactly the same as before. Patient admits he is just anxious I will discharge him home with Valium for his anxiety After performing a Medical Screening Examination, I estimate there is LOW risk for RUPTURED ESOPHAGUS, PNEUMOTHORAX, PULMONARY EMBOLISM, ACUTE CORONARY SYNDROME, OR THORACIC AORTIC DISSECTION, thus I consider the discharge disposition reasonable. I have reevaluated this patient multiple times and no significant life threatening changes are noted. The patient and I have discussed the diagnosis and risks, and we agree with discharging home with close follow-up. We also discussed returning to the Emergency Department immediately if new or worsening symptoms occur. We have discussed the symptoms which are most concerning (e.g., bloody sputum, worsening pain or shortness of breath) that necessitate immediate return. - Vital Signs Vital signs: Temp Pulse Resp BP Pulse Ox 98.2 F 82 20 124/80 96 05/14/17 08:03 05/14/17 10:30 05/14/17 10:30 05/14/17 10:30 05/14/17 10:30 - Diagnostic Test Radiology reviewed: Image reviewed, Reports reviewed - Pulmonary emboli Discharge - Discharge Clinical Impression: Anxiety Pulmonary embolism Qualifiers: Pulmonary embolism type: other Chronicity: chronic Acute cor pulmonale presence : without acute cor pulmonale Qualified Code(s): I27.82 - Chronic pulmonary embolism Groin pain Qualifiers: Laterality: left Qualified Code(s): R10.32 - Left lower quadrant pain Condition: Stable Disposition: HOME, SELF-CARE Instructions: Anxiety ([facility]) Prescriptions: Diazepam [Valium 5 mg Tablet] 5 mg PO TID #20 tablet Referrals: RADHIKA SEGURA MD [Primary Care Provider] - Follow up tomorrow
[2017-05-14 10:31] VITALS: BP 124/80
== END 2017-05-14 10:30 | disposition home or self-care (01) ==
LOC: ER 08:00
DX: F41.9 Anxiety disorder, unspecified (principal); I27.82 Chronic pulmonary embolism; R07.9 Chest pain, unspecified; R06.02 Shortness of breath; R07.89 Other chest pain; R10.32 Left lower quadrant pain; Z79.01 Long term (current) use of anticoagulants; Z82.49 Family history of ischemic heart disease and other diseases of the circulatory system
CPT/HCPCS: 71275; 93971; 99285

== ENCOUNTER 2018-05-05 14:59 | Emergency (ER) | payer SELFPAY ==
--- NOTE | 2018-05-05 17:04 | ER Document Report ---
ED Medical Screen (RME) - General Chief Complaint: Chest Pain Stated Complaint: BURNING FEELING IN CHEST Time Seen by Provider: 05/05/18 17:00 TRAVEL OUTSIDE OF THE [place] IN LAST 30 DAYS: No - HPI Notes: 05/05/18 17:01 Patient is a 47-year-old male with a history of a PE 1 year ago and no longer on blood thinners who presents to the ED complaining of lower sternal chest burning 24 hours. Patient states that his pain has been relatively constant, but it does not radiate and does wax and wane in intensity. Patient states that he has had anxiety and panic attacks since having his PE last year. Patient states that he did not sleep well last night because he is reading on the Internet of all the things that he could be. Patient states that he was so anxious yesterday that he took 1 of his blood thinners as well. Patient states that he has not been eating or drinking much since then. Patient has not been diaphoretic, nauseous, or vomiting. Patient states that he is able to ambulate without any dyspnea on exertion, worsening pain, or shortness of breath. No other significant cardiopulmonary medical history. No sudden cardiac in the family. Denies any headache, fever, URI, sore throat, palpitations, syncope , cough, shortness of breath, wheeze, dyspnea, abdominal pain, nausea/vomiting/ diarrhea, urinary retention, dysuria, hematuria, loss of control of bowel or bladder, numbness/tingling, muscle paralysis/weakness, or rash. I have treated and performed a rapid initial assessment of this patient. A comprehensive ED assessment and evaluation of the patient, analysis of test results and completion of medical decision making process will be conducted by additional ED providers. PHYSICAL EXAMINATION: GENERAL: Well-appearing, well-nourished and in no acute distress. A&Ox4. Answers questions appropriately. LUNGS: Breath sounds clear to auscultation bilaterally and equal. No wheezes rales or rhonchi. HEART: Regular rate and rhythm without murmurs, rubs, gallops. ABDOMEN: Soft, nondistended abdomen. No guarding, no rebound. No masses appreciated. Normal bowel sounds present. No CVA tenderness bilaterally. Non- tender to palp. Extremities: No cyanosis, clubbing, or edema b/l. Delano neg. NEUROLOGICAL: Normal speech, normal gait. PSYCH: Normal mood, normal affect. - Related Data Allergies/Adverse Reactions: No Known Allergies Allergy (Verified 05/05/18 14:59) Past Medical History Endocrine Medical History: Denies: Hx Diabetes Mellitus Type 1, Hx Diabetes Mellitus Type 2 Renal/ Medical History: Denies: Hx Peritoneal Dialysis Psychiatric Medical History: Denies: Hx Anxiety Past Surgical History: Reports: Hx Appendectomy - Immunizations Hx Diphtheria, Pertussis, Tetanus Vaccination: Yes Physical Exam - Vital signs Vitals: Temp Pulse Resp BP Pulse Ox 98.2 F 84 16 149/85 H 95 05/05/18 15:03 05/05/18 15:03 05/05/18 15:03 05/05/18 15:03 05/05/18 15:03 Course - Vital Signs Vital signs: Temp Pulse Resp BP Pulse Ox 98.2 F 84 16 149/85 H 95 05/05/18 15:03 05/05/18 15:03 05/05/18 15:03 05/05/18 15:03 05/05/18 15:03 Doctor's Discharge - Discharge Referrals: RADHIKA SEGURA MD [Primary Care Provider] - Follow up as needed
[2018-05-05] MEDS ORDERED: LIDOCAINE 2% VISCOUS SOLN 20 ML UDCUP PO ONE (17:27)
[2018-05-05] MEDS ORDERED: MAG HYDROX/AL HYDROX/SIMETH SUSP 30 ML UDCUP PO ONE (17:27)
[2018-05-05] MEDS ORDERED: METOCLOPRAMIDE HCL ORAL SOLN 10 MG/10 ML UDCUP PO ONE (17:27)
--- NOTE | 2018-05-05 17:31 | RADIOLOGY REPORT (SQ) ---
EXAM DESCRIPTION: CHEST SINGLE VIEW COMPLETED DATE/TIME: 05/05/2018 5:09 pm REASON FOR STUDY: chest pain; burning COMPARISON: 05/05/2017 EXAM PARAMETERS: NUMBER OF VIEWS: One view. TECHNIQUE: Single frontal radiographic view of the chest acquired. RADIATION DOSE: NA LIMITATIONS: None. FINDINGS: LUNGS AND PLEURA: No acute opacities, masses or pneumothorax. No pleural effusion. MEDIASTINUM AND HILAR STRUCTURES: No masses. Contour normal. HEART AND VASCULAR STRUCTURES: Heart normal in size. Normal vasculature. BONES: No acute findings. HARDWARE: None in the chest. OTHER: No other significant finding. IMPRESSION: NO ACUTE RADIOGRAPHIC FINDING IN THE CHEST. TECHNICAL DOCUMENTATION: JOB ID: [id number] [place]-72 2010 [employer]- All Rights Reserved Reading location - IP/workstation name: [email or web address]
[2018-05-05 17:49] LABS: ABSOLUTE EOSINOPHILS # (AUTO) 0.2 10^3/uL (0.0-0.6); ABSOLUTE MONOCYTES (AUTO) 0.9 10^3/uL (0.1-1.4); ABSOLUTE NEUT (AUTO) 4.4 10^3/uL (1.7-8.2); BASOPHILS % (AUTO) 0.6 % (0-2); EOSINOPHILS % (AUTO) 2.3 % (0-6); HEMATOCRIT 51.7 % (37.9-51.0); HEMOGLOBIN 17.6 g/dL (13.5-17.0); LYMPHOCYTES % (AUTO) 26.3 % (13-45); MEAN CORPUSCULAR HEMOGLOBIN 29.1 pg (27.0-33.4); MEAN CORPUSCULAR VOLUME 86 fl (80-97); PLATELET COUNT 220 10^3/uL (150-450); RED BLOOD COUNT 6.04 10^6/uL (4.35-5.55); RED CELL DISTRIBUTION WIDTH 13.7 % (11.5-14.0); SEGMENTED NEUTROPHILS % (AUTO) 58.8 % (42-78); TOTAL CELLS COUNTED % (AUTO) 100 %; WHITE BLOOD COUNT 7.5 10^3/uL (4.0-10.5)
[2018-05-05 17:53] LABS: INTERNATIONAL RATION (INR) 0.97; PROTHROMBIN TIME 13.4 SEC (11.4-15.4)
[2018-05-05 18:16] LABS: ALANINE AMINOTRANSFERASE 41 U/L (21-72); ALBUMIN 4.9 g/dL (3.5-5.0); ALKALINE PHOSPHATASE 63 U/L (38-126); ANION GAP 15 (5-19); ASPARTATE AMINO TRANSFERASE 32 U/L (17-59); BILIRUBIN,DIRECT 0.3 mg/dL (0.0-0.4); BILIRUBIN,TOTAL 0.5 mg/dL (0.2-1.3); BLOOD UREA NITROGEN 11 mg/dL (7-20); CALCIUM 10.2 mg/dL (8.4-10.2); CARBON DIOXIDE 27 mmol/L (22-30); CHLORIDE 102 mmol/L (98-107); GLUCOSE 90 mg/dL (75-110); LIPASE 87.3 U/L (23-300); POTASSIUM 4.7 mmol/L (3.6-5.0); SODIUM 143.5 mmol/L (137-145); TOTAL PROTEIN 8.5 g/dL (6.3-8.2)
--- NOTE | 2018-05-05 20:20 | ER Document Report ---
ED General - General Mode of Arrival: Ambulatory Information source: Patient TRAVEL OUTSIDE OF THE [place] IN LAST 30 DAYS: No <DOMINIC GOMEZ - Last Filed: 05/05/18 20:46> <SPENCERYOONFREDERICK - Last Filed: 05/06/18 03:14> - General Chief Complaint: Chest Pain Stated Complaint: BURNING FEELING IN CHEST Time Seen by Provider: 05/05/18 17:00 Notes: Patient is a 47 year old male with a history of a pulmonary embolism presents to the emergency department complaining of chest pain. Patient describes his chest pain as an intermittent burning that has been onset ever since is pulmonary embolism 1 year ago. Patient states he has had worsened anxiety the last few months regarding his health due to his previous blood clot further stating any symptom he has had he would be concerned of a DVT. He states he came into the emergency department today to make sure he did not have another blood clot. Patient at bedside states he no longer has a burning sensation after receiving a GI cocktail although his chest feels a little sore. Patient denies any shortness of breath. Patient states he discontinued his blood thinners after 6 months as directed by his physician. (DOMINIC GOMEZ) - Related Data Allergies/Adverse Reactions: No Known Allergies Allergy (Verified 05/05/18 14:59) Past Medical History - General Information source: Patient - Social History Smoking Status: Never Smoker Chew tobacco use (# tins/day): No Frequency of alcohol use: None Drug Abuse: None Family History: CAD, Hypertension Patient has suicidal ideation: No Patient has homicidal ideation: No Past Surgical History: Reports: Hx Appendectomy - Immunizations Hx Diphtheria, Pertussis, Tetanus Vaccination: Yes <DOMINIC GOMEZ - Last Filed: 05/05/18 20:46> Review of Systems - Review of Systems Constitutional: No symptoms reported EENT: No symptoms reported Cardiovascular: See HPI, Chest pain Respiratory: No symptoms reported. denies: Short of breath Gastrointestinal: No symptoms reported Genitourinary: No symptoms reported Male Genitourinary: No symptoms reported Musculoskeletal: No symptoms reported Skin: No symptoms reported Hematologic/Lymphatic: No symptoms reported Neurological/Psychological: See HPI, Anxiety -: Yes All other systems reviewed and negative <DOMINIC GOMEZ - Last Filed: 05/05/18 20:46> Physical Exam <DOMINIC GOMEZ - Last Filed: 05/05/18 20:46> <FREDERICK TOBIAS - Last Filed: 05/06/18 03:14> - Vital signs Vitals: Temp Pulse Resp BP Pulse Ox 98.2 F 84 16 149/85 H 95 05/05/18 15:03 05/05/18 15:03 05/05/18 15:03 05/05/18 15:03 05/05/18 15:03 - Notes Notes: GENERAL: Alert, interacts well. Appears anxious. HEAD: Normocephalic, atraumatic. EYES: Pupils equal, round, and reactive to light. Extraocular movements intact. ENT: Oral mucosa moist, tongue midline. NECK: Full range of motion. Supple. Trachea midline. LUNGS: Clear to auscultation bilaterally, no wheezes, rales, or rhonchi. No respiratory distress. HEART: Regular rate and rhythm. No murmurs, gallops, or rubs. ABDOMEN: Soft, non-tender. Non-distended. Bowel sounds present in all 4 quadrants. EXTREMITIES: Moves all 4 extremities spontaneously. No edema, radial and dorsalis pedis pulses 2/4 bilaterally. No cyanosis. NEUROLOGICAL: Alert and oriented x3. Normal speech. PSYCH: Appears anxious. SKIN: Warm, dry, normal turgor. No rashes or lesions noted. (JASONGIANFRANCOREDD) Course - Laboratory Result Diagrams: 05/05/18 17:36 05/05/18 17:36 <JASONGIANFRANCOREDD - Last Filed: 05/05/18 20:46> - Laboratory Result Diagrams: 05/05/18 17:36 05/05/18 17:36 <FREDERICK TOBIAS - Last Filed: 05/06/18 03:14> - Re-evaluation Re-evalutation: 05/05/18 22:14 CBC unremarkable, d-dimer negative, CMP unremarkable, cardiac enzymes negative 2, chest x-ray shows no acute process, EKG is nonischemic, symptoms improved with GI cocktail. Discussed with patient that symptoms are not suggestive of heart attack or pulmonary embolism. Patient is encouraged to follow-up with psychiatrist as an outpatient to discuss the fact that he has been having increasing anxiety related to his prior diagnosis of pulmonary embolism and DVT in the past. Patient is also encouraged to take Zantac twice a day for the next 2 weeks to see if this improves his chronic chest pain that has been increasing over the past year. (FREDERICK TOBIAS) - Vital Signs Vital signs: Temp Pulse Resp BP Pulse Ox 98.3 F 81 16 125/82 95 05/05/18 22:22 05/05/18 22:22 05/05/18 15:03 05/05/18 22:22 05/05/18 22:22 - Laboratory Laboratory results interpreted by me: 05/05/18 05/05/18 17:36 17:36 RBC 6.04 H Hgb 17.6 H Hct 51.7 H Total Protein 8.5 H - EKG Interpretation by Me Additional EKG results interpreted by me: 05/05/18 22:16 EKG shows sinus rhythm at a rate of 91, slight left axis deviation, normal intervals, no ST segment elevations or depressions, there are T-wave inversions noted in lead III per my interpretation. (FREDERICK TOBIAS) Discharge <DOMINIC GOMEZ - Last Filed: 05/05/18 20:46> <FREDERICK TOBIAS - Last Filed: 05/06/18 03:14> - Discharge Clinical Impression: Chest pain with low risk for cardiac etiology Condition: Stable Disposition: HOME, SELF-CARE Instructions: Chest Pain of Unclear Cause ([facility]) Additional Instructions: Please take Zantac 75 mg twice a day for the next 14 days. You may use the generic equivalent. Referrals: RADHIKA SEGURA MD [NO LOCAL MD] - Follow up as needed Scribe Attestation: 05/06/18 03:14 I personally performed the services described in the documentation, reviewed and edited the documentation which was dictated to the scribe in my presence, and it accurately records my words and actions. (FREDERICK TOBIAS) Scribe Documentation - Scribe Written by Emory:: Emory Moise, 05/05/2018 20:22 acting as scribe for :: Narcisa <DOMINIC GOMEZ - Last Filed: 05/05/18 20:46>
[2018-05-05 22:38] VITALS: BP 125/82
--- NOTE | 2018-05-06 00:21 | EKG REPORT ---
SEVERITY:- BORDERLINE ECG - SINUS RHYTHM PROBABLE LEFT ATRIAL ABNORMALITY BORDERLINE LEFT AXIS DEVIATION CONSIDER ANTERIOR INFARCT : Confirmed by: Ciara Friedman MD 06-May-2018 00:21:26
== END 2018-05-05 22:30 | disposition home or self-care (01) ==
LOC: ER 14:59
DX: R07.9 Chest pain, unspecified (principal); Z86.711 Personal history of pulmonary embolism
CPT/HCPCS: 93005; 99285; 36415; 83690; 85025; 85610; 80053; 84484; 85379; 71045; 93010; J3490